=== PATIENT | male | born 1970 | race Hispanic/Latino ===

== ENCOUNTER 2016-11-18 14:31 | Emergency (ER) | payer OTHER ==
--- NOTE | 2016-11-18 15:35 | C.PDOC ---
History Of Present Illness 46 yr old male with PMHx of HIV and Hepatitis B, not on any medications for the past 1 year, last CD4 680 and viral load undetectable, presents to the ER with complaints of cough with yellow sputum, myalgia, sore throat and hoarse voice, and feeling hot and cold for the past 5 days. Patient states last night when he went to work he felt sweaty and like he was going to pass out. Also reports of mild SOB. Patient denies fever, chest pain, nausea, vomiting, abdominal pain, diarrhea, weakness or numbness. Time Seen by Provider: 11/18/16 14:55 Chief Complaint (Nursing): ENT Problem History Per: Patient History/Exam Limitations: no limitations Onset/Duration Of Symptoms: Days (5) Past Medical History Reviewed: Historical Data, Nursing Documentation, Vital Signs Vital Signs: Last Vital Signs Temp 98 F 11/18/16 14:47 Pulse 71 11/18/16 14:47 Resp 20 11/18/16 14:47 BP 129/77 11/18/16 14:47 Pulse Ox 98 11/18/16 17:13 - Medical History PMH: HIV Family History: States: No Known Family Hx - Social History Hx Alcohol Use: No Hx Substance Use: No - Immunization History Hx Tetanus Toxoid Vaccination: No Hx Influenza Vaccination: No Hx Pneumococcal Vaccination: No Review Of Systems Except As Marked, All Systems Reviewed And Found Negative. Constitutional: Positive for: Chills, Sweats, Other ((+) Myalgia ). Negative for: Fever ENT: Positive for: Throat Pain (Sore throat ) Cardiovascular: Negative for: Chest Pain Respiratory: Positive for: Cough, Shortness of Breath (Mild), Sputum (yellow) Gastrointestinal: Negative for: Nausea, Vomiting, Abdominal Pain, Diarrhea Neurological: Negative for: Weakness, Numbness Physical Exam - Physical Exam Appears: Non-toxic, No Acute Distress Skin: Warm, Dry, No Rash Head: Atraumatic, Normacephalic Oral Mucosa: Moist Tongue: Other ((+) White plaque ) Throat: Erythema (Posterior pharynx erythema), Exudate (Some white exudate) Neck: Normal, Normal ROM, Supple Lymphatic: Adenopathy (Submandibular lymphadenopathy) Chest: Symmetrical, No Tenderness Cardiovascular: Rhythm Regular, No Friction Rub, No Murmur Respiratory: Normal Breath Sounds, No Rales, No Rhonchi, No Stridor, No Wheezing Gastrointestinal/Abdominal: Normal Exam, Soft, No Tenderness, No Guarding, No Rebound Extremity: Normal ROM, No Swelling Neurological/Psych: Oriented x3, Normal Speech, Normal Motor ED Course And Treatment O2 Sat by Pulse Oximetry: 98 - Other Rad CXR X-Ray: Viewed By Me, Read By Radiologist Interpretation: HISTORY: cough yellow sputum. COMPARISON: None available. TECHNIQUE: Chest PA and lateral. FINDINGS: LUNGS: No focal consolidation. Please note that chest x-ray has limited sensitivity for the detection of pulmonary masses. PLEURA: No significant pleural effusion identified. No definite pneumothorax . CARDIOVASCULAR: The cardiomediastinal silhouette appears within normal limits of size. OSSEOUS STRUCTURES: No acute osseous abnormality identified. VISUALIZED UPPER ABDOMEN: Unremarkable. OTHER FINDINGS: None. IMPRESSION: No focal consolidation, significant pleural effusion, or definite pneumothorax identified. Medical Decision Making Medical Decision Making: PLAN: * CXR * Rapid Strep * 506 pm cxr neg, rapid strep neg will tx for bronchitis with antibiotic, give ne dose diflucan. recommend nsaids for pain. with close clinic f/u Disposition Counseled Patient/Family Regarding: Studies Performed, Diagnosis, Need For Followup, Rx Given - Disposition Disposition: HOME/ ROUTINE Disposition Time: 17:07 Condition: STABLE Additional Instructions: Follow up in clinic as soon as possible. Take medication as prescribed. Recommend Ibuprofen for pain as well. 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 - Scribe Statement The provider has reviewed the documentation as recorded by the Scribe Nessa Anderson All medical record entries made by the Jenniferibmiles were at my direction and personally dictated by me. I have reviewed the chart and agree that the record accurately reflects my personal performance of the history, physical exam, medical decision making, and the department course for this patient. I have also personally directed, reviewed, and agree with the discharge instructions and disposition.
[2016-11-18 17:26] VITALS: BP 122/79; PULSE 91; RESP 18; TEMP 98.4; O2SAT 96
== END 2016-11-18 17:26 | disposition home or self-care (01) ==
LOC: C.ER 14:31
DX: J06.9 Acute upper respiratory infection, unspecified (principal); B20 Human immunodeficiency virus [HIV] disease

== ENCOUNTER 2018-12-21 15:26 | Emergency (ER) | payer MEDICAID ==
[2018-12-21 15:49] VITALS: RESP 18; BMI 29.5
--- NOTE | 2018-12-21 16:34 | C.PDOC ---
History Of Present Illness 48 y/o M c PMHx DM, HIV on HARRT with normal CD4 and undetectable viral load p/w back pain x 2 days. States woke up with back pain yesterday morning, feels like knots and spasm in mid to lower back worse with movement. Denies fever, recent procedures, urinary or bowel retention or incontinence, extremity weakness or numbness. Time Seen by Provider: 12/21/18 16:08 Chief Complaint (Nursing): Back Pain Past Medical History Vital Signs: Last Vital Signs Temp 98.6 F 12/21/18 15:32 Pulse 99 H 12/21/18 15:32 Resp 18 12/21/18 15:32 BP 131/81 12/21/18 15:32 Pulse Ox 98 12/21/18 15:32 - Medical History PMH: HIV Family History: States: No Known Family Hx - Social History Hx Alcohol Use: No Hx Substance Use: No - Immunization History Hx Tetanus Toxoid Vaccination: No Hx Influenza Vaccination: No Hx Pneumococcal Vaccination: No Review Of Systems Except As Marked, All Systems Reviewed And Found Negative. Constitutional: Negative for: Fever Gastrointestinal: Negative for: Vomiting Physical Exam - Physical Exam Additional Physical Exam Comments: gen nad head nc/at eyes no scleral icterus ent mmm neck no midline tenderness chest no tenderness cv reg rate lungs cta b/l abd soft, nt, nd back no midline tenderness. bilateral muscular tenderness skin no rash, no shingles extremities no deformity or edema, no tenderness neuro alert, sensation and motor intact in lower legs ED Course And Treatment O2 Sat by Pulse Oximetry: 98 Medical Decision Making Medical Decision Making: Control pain, work as tolerated, instructed to f/u with primary care for further imaging if not resolved in 2 weeks. Disposition - Disposition Disposition: HOME/ ROUTINE Disposition Time: 16:37 Condition: GOOD Prescriptions: Famotidine [Pepcid] 1 tab PO BID #14 tab Ibuprofen [Motrin] 600 mg PO Q6 #25 tab Methocarbamol [Robaxin-750] 1 tab PO Q8H #12 tablet Instructions: Low Back Pain (DC) Forms: [facility] (Emirati), Work Excuse - Clinical Impression Clinical Impression: Back pain
[2018-12-21 18:34] VITALS: BP 128/81; PULSE 82; TEMP 98; O2SAT 99
== END 2018-12-21 18:00 | disposition home or self-care (01) ==
LOC: C.ER 15:26
DX: M54.9 Dorsalgia, unspecified (principal)
CPT/HCPCS: 96372; 99284; J1885